=== PATIENT | male | born 1960 | race Caucasian/White ===

== ENCOUNTER → 2023-07-12 07:43 | Outpatient (REF) | payer BC, SELFPAY | LOC: RSP 07:43 | PROVIDERS: ATTENDING PHYSICIAN Family Medicine | DX: R06.09 Other forms of dyspnea (principal) | CPT/HCPCS: 94727; 94729; 88738; 94010 ==

== ENCOUNTER → 2023-11-21 16:59 | Outpatient (REF) | payer BC, SELFPAY | LOC: RCS 16:59 | PROVIDERS: ATTENDING PHYSICIAN Family Medicine | DX: R06.09 Other forms of dyspnea (principal) | CPT/HCPCS: 93306 ==

== ENCOUNTER → 2024-02-05 06:34 | Outpatient (REF) | payer BC, SELFPAY | LOC: RCS 06:34 | PROVIDERS: ATTENDING PHYSICIAN Family Medicine | DX: R06.09 Other forms of dyspnea (principal) | CPT/HCPCS: 78452; 93017; A9500 ==

== ENCOUNTER → 2024-08-19 14:15 | Outpatient (REF) | payer BC, SELFPAY | LOC: HWRAD 14:15 | PROVIDERS: ATTENDING PHYSICIAN Internal Medicine Critical Care Medicine; FAMILY PHYSICIAN Family Medicine | DX: Z87.891 Personal history of nicotine dependence (principal) | CPT/HCPCS: 71271 ==